=== PATIENT | female | born 1960 ===

== ENCOUNTER 2018-09-23 12:58 | Emergency (ER) | payer SELFPAY ==
[2018-09-23 13:09] VITALS: BP 115/54
[2018-09-23] MEDS ORDERED: NORMAL SALINE 1000 ML 1,000 ML IV ONE (13:58)
--- NOTE | 2018-09-23 14:01 | ER Document Report ---
ED Medical Screen (RME) - General Chief Complaint: General Weakness Stated Complaint: NAUSEA/VOMITING Time Seen by Provider: 09/23/18 13:52 Mode of Arrival: Wheelchair Information source: Patient Notes: 58-year-old female presented to ED for complaint of nausea vomiting sweating. She has a history of chronic pain diabetes motility disease herniated disc and autoimmune hepatitis. She states that her home Accu-Chek was 156 when we checked the Accu-Chek in the emergency room it was 236. She states that the EMS got to 156. She states she came in for exacerbation of her herniated disc and her hepatitis and they started on high-dose steroids. She states that his glucose got up to 600 so they stopped the steroids. She states ever since they stopped the steroids she has been very sick nauseated sweating and vomiting. I have greeted and performed a rapid initial assessment of this patient. A comprehensive ED assessment and evaluation of the patient, analysis of test results and completion of medical decision making process will be conducted by an additional ED providers. Dictation of this chart was performed using voice recognition software; therefore, there may be some unintended grammatical errors. TRAVEL OUTSIDE OF THE [place] IN LAST 30 DAYS: No - Related Data Allergies/Adverse Reactions: No Known Allergies Allergy (Verified 09/23/18 13:02) Past Medical History - Social History Chew tobacco use (# tins/day): No Drug Abuse: None Endocrine Medical History: Reports: Hx Diabetes Mellitus Type 2 Renal/ Medical History: Denies: Hx Peritoneal Dialysis Past Surgical History: Reports: Hx Cholecystectomy Physical Exam - Vital signs Vitals: Temp Pulse Resp BP Pulse Ox 98.2 F 103 H 20 115/54 L 98 09/23/18 13:05 09/23/18 13:05 09/23/18 13:05 09/23/18 13:05 09/23/18 13:05 Course - Vital Signs Vital signs: Temp Pulse Resp BP Pulse Ox 98.2 F 103 H 20 115/54 L 98 09/23/18 13:05 09/23/18 13:05 09/23/18 13:05 09/23/18 13:05 09/23/18 13:05 - Laboratory Laboratory results interpreted by me: 09/23/18 13:50 POC Glucose 236 H
[2018-09-23 14:13] LABS: ABSOLUTE EOSINOPHILS # (AUTO) 0.1 10^3/uL (0.0-0.6); ABSOLUTE LYMPHOCYTES (AUTO) 1.2 10^3/uL (0.5-4.7); ABSOLUTE MONOCYTES (AUTO) 0.4 10^3/uL (0.1-1.4); ABSOLUTE NEUT (AUTO) 6.4 10^3/uL (1.7-8.2); BASOPHILS % (AUTO) 0.5 % (0-2); EOSINOPHILS % (AUTO) 0.9 % (0-6); HEMATOCRIT 44.6 % (36.0-47.0); HEMOGLOBIN 15.4 g/dL (12.0-15.5); MEAN CORPUSCULAR HEMOGLOBIN 33.7 pg (27.0-33.4); MEAN CORPUSCULAR HGB CONC 34.4 g/dL (32.0-36.0); MEAN CORPUSCULAR VOLUME 98 fl (80-97); MONOCYTES % (AUTO) 5.1 % (3-13); PLATELET COUNT 228 10^3/uL (150-450); RED BLOOD COUNT 4.56 10^6/uL (3.72-5.28); RED CELL DISTRIBUTION WIDTH 13.5 % (11.5-14.0); SEGMENTED NEUTROPHILS % (AUTO) 78.5 % (42-78); TOTAL CELLS COUNTED % (AUTO) 100 %; WHITE BLOOD COUNT 8.1 10^3/uL (4.0-10.5)
[2018-09-23 14:24] LABS: ALANINE AMINOTRANSFERASE 25 U/L (9-52); ALBUMIN 3.9 g/dL (3.5-5.0); ALKALINE PHOSPHATASE 32 U/L (38-126); ASPARTATE AMINO TRANSFERASE 29 U/L (14-36); BILIRUBIN,DIRECT 0.3 mg/dL (0.0-0.4); BLOOD UREA NITROGEN 11 mg/dL (7-20); CALCIUM 9.4 mg/dL (8.4-10.2); CHLORIDE 94 mmol/L (98-107); CREATINE KINASE 20 U/L (30-135); GLUCOSE 232 mg/dL (75-110); POTASSIUM 4.6 mmol/L (3.6-5.0); TOTAL PROTEIN 7.2 g/dL (6.3-8.2)
[2018-09-23 14:31] LABS: SODIUM 131.8 mmol/L (137-145)
[2018-09-23 14:32] LABS: ANION GAP 5 (5-19); CARBON DIOXIDE 33 mmol/L (22-30)
[2018-09-23 14:47] LABS: FREE T3 3.29 pg/mL (2.77-5.27); FREE T4 (FREE THYROXINE) 1.68 ng/dL (0.78-2.19)
[2018-09-23 14:49] LABS: APPEARANCE,URINE CLEAR; BILIRUBIN,URINE NEGATIVE (NEGATIVE); COLOR,URINE STRAW; GLUCOSE, URINE 500 mg/dL (NEGATIVE); KETONES,URINE 100 mg/dL (NEGATIVE); LEUKOCYTE ESTERASE,URINE NEGATIVE (NEGATIVE); NITRITE,URINE NEGATIVE (NEGATIVE); PROTEIN,URINE NEGATIVE (NEGATIVE); UROBILINOGEN,URINE NEGATIVE mg/dL (<2.0)
[2018-09-23 14:50] LABS: URINE SPECIFIC GRAVITY 1.008
--- NOTE | 2018-09-23 19:20 | EKG REPORT ---
SEVERITY:- BORDERLINE ECG - SINUS RHYTHM BORDERLINE T ABNORMALITIES, ANT-LAT LEADS : Confirmed by: Mirian Lopez MD 23-Sep-2018 19:20:24
== END 2018-09-23 18:05 | disposition left against medical advice (07) ==
LOC: ER 12:58
DX: R11.2 Nausea with vomiting, unspecified (principal); R61 Generalized hyperhidrosis; E11.9 Type 2 diabetes mellitus without complications; Z53.20 Procedure and treatment not carried out because of patient's decision for unspecified reasons
CPT/HCPCS: 93005; 99281; 96360; 36415; 84439; 82962; 82550; 84443; 85025; 80053; 81001; 84481; 93010; J7030